=== PATIENT | male | born 1955 | race American Indian/Alaskan Native ===

== ENCOUNTER 2017-02-07 06:02 | Day surgery (SDC) | payer BC ==
[2017-02-05 10:45] VITALS: BMI 26.5
[2017-02-07] MEDS ORDERED: ceFAZolin IV 1 gm in Dextrose 1 GM/50 ML BAG IVPB ONE (07:37)
[2017-02-07] MEDS ORDERED: Midazolam 2 MG/2 ML VIAL ONE (07:47)
[2017-02-07] MEDS ORDERED: Propofol 10 mg/ml Inj (20 ML) ONE (07:47)
[2017-02-07] MEDS ORDERED: Lactated Ringer's 1,000 ML IV ONE (07:50)
[2017-02-07] MEDS ORDERED: Lidocaine 2% w Epi 1:100,000 Inj IJ ONE (07:56)
[2017-02-07] MEDS ORDERED: Oxycodone/Acetaminophen 5/325 mg Tab PO ONE (08:44)
[2017-02-07] MEDS ORDERED: HYDROmorphone 0.5 mg/0.5 ml ISec IVP PRN (08:46)
--- NOTE | 2017-02-07 08:48 | PCM.SURG1 ---
Surgeon's Initial Post Op Note - Surgeon's Notes Surgeon: Abram Architectural Drafter: [id number] Type of Anesthesia: General Endo Pre-Operative Diagnosis: R inguinal lymphadenopathy Operative Findings: dark lymph node Post-Operative Diagnosis: R inguinal lymphadenopathy Operation Performed: Excision R inguinal lymph node Specimen/Specimens Removed: R inguinal lymph node Estimated Blood Loss: EBL {In ML}: 5 Blood Products Given: N/A Drains Used: No Drains Post-Op Condition: Good Date of Surgery/Procedure: 02/07/17 Time of Surgery/Procedure: 07:50
[2017-02-07] MEDS ORDERED: Lactated Ringer's 500 ML IV ONE (10:00)
[2017-02-07 10:49] VITALS: BP 133/80; PULSE 89; RESP 18; TEMP 97.8; O2SAT 100
--- NOTE | 2017-02-08 08:43 | OP ---
PROCEDURE DATE: 02/07/2017 PREOPERATIVE DIAGNOSES: Lymphadenopathy, right groin and swelling of right leg. PROCEDURE CARRIED OUT: Right groin lymph node biopsy. SURGEON: Cristofer Valverde Jr., MD OVERNIGHT ASSOCIATE: Dr. Nielson. ANESTHESIOLOGIST: . INDICATION: The patient 61-year-old man presented with swelling of the leg, questionable adenopathy in the groin. CT reveals extensive pelvic adenopathy on the right side. OPERATIVE FINDINGS: Lymph node removed was dark in color, black and at least half of it. There were not many other lymph nodes present. DESCRIPTION OF PROCEDURE: The patient was given general anesthesia, intravenous antibiotics. Incision was made in the groin directly over the lymph node which was excised. Hemostasis was good. Lymphatic vessels bleeding and tube ligated. We were then close the wound with subcuticular closure and Steri-Strips on the skin. Blood loss for the procedure was less than 5 mL. Operation carried out is right femoral lymph node biopsy. Cristofer Valverde Jr., MD cc: Dr. Leoncio Burgos
== END 2017-02-07 10:55 | disposition home or self-care (01) ==
LOC: C.SDS 06:02
PROVIDERS: ATTEND Surgery Vascular Surgery
DX: R59.0 Localized enlarged lymph nodes (principal)
CPT/HCPCS: 38500; 88307; 88342; J0690; J1885; J2250; J2405; J2704; J2765; J3010; J7120